=== PATIENT | male | born 1980 | race Caucasian/White ===

== ENCOUNTER 2019-04-27 12:19 | Emergency (ER) | payer MEDICAID ==
[~2019-04-27] VITALS: Ht 190.5 cm; Wt 139.3 kg
[2019-04-27 12:23] VITALS: BP 141/91
== END 2019-04-27 19:36 ==
LOC: ED 12:52 → UNDOADMIN 12:53 → EDIP 12:53 → ED 12:56 → EDIP 19:36
DX: R45.851 Suicidal ideations (principal); F32.9 Major depressive disorder, single episode, unspecified; Z87.891 Personal history of nicotine dependence
CPT/HCPCS: 36415; 80048; 80307; 82040; 85025; 99285